=== PATIENT | male | born 1955 | race Caucasian/White ===

== ENCOUNTER 2018-07-13 20:52 | Inpatient (IN) | payer MEDICARE ==
[~2018-07-13] VITALS: Ht 172.7 cm; Wt 97.5 kg
[~2018-07-13 20:52] MED LIST: ACETAMINOPHEN325 M1 PO; COLACE100 MG PO; NOHOMEMEDICATIONS
[2018-07-13 21:11] VITALS: BP 173/109
[2018-07-13 21:40] LABS: ABSOLUTE BASOPHILS 0.1 thou/uL (0.0-0.2); ABSOLUTE EOSINOPHILS 0.1 thou/uL (0.0-0.7); ABSOLUTE MONOCYTES 1.2 thou/uL (0.0-1.2); EOSINOPHILS 0.5 %; MCH 30.7 pg (26.0-34.0); WBC 14.8 thou/uL (4.0-11.0)
[2018-07-13 21:41] LABS: ABSOLUTE NEUTROPHILS 11.5 thou/uL (1.6-8.1); BASOPHILS 0.6 %; HEMATOCRIT 50.3 % (42.0-52.0); LYMPHOCYTES 13.4 %; MCHC 33.7 g/dL (28.0-37.0); MCV 90.9 fL (80.0-100.0); MONOCYTES 7.9 %; MPV 8.4 fl. (7.2-11.1); NUCLEATED RBCS 0 /100WBC; PLATELET COUNT* 232 thou/uL (150-400); POLYS 77.6 %; RBC 5.53 mil/uL (4.50-6.00); RDW-CV 12.9 % (10.5-14.5)
[2018-07-13 21:52] LABS: CALCIUM 9.4 mg/dL (8.5-10.1); CREATININE 1.3 mg/dL (0.6-1.3); POTASSIUM 4.5 mmol/L (3.5-5.1)
[2018-07-13 22:02] LABS: TOTAL BILIRUBIN 0.4 mg/dL (<0.1-1.0); TOTAL PROTEIN 7.4 g/dL (6.4-8.2)
[2018-07-13 22:30] LABS: URINE BILIRUBIN NEGATIVE (Negative); URINE BLOOD TRACE (Negative); URINE CLARITY CLEAR; URINE COLOR YELLOW; URINE GLUCOSE-RANDOM NEGATIVE (Negative); URINE KETONES NEGATIVE (Negative); URINE LEUKOCYTES-REFLEX NEGATIVE (Negative); URINE NITRITE-REFLEX NEGATIVE (Negative); URINE PROTEIN NEGATIVE (Negative); URINE SPECIFIC GRAVITY >= 1.030 (1.005-1.030); URINE UROBILINOGEN 0.2 E.U./dl (0.2-1.0)
[2018-07-13 22:40] LABS: AMP/METHAMP Negative (Negative); BARBITURATES Negative (Negative); BENZODIAZEPINES Negative (Negative); COCAINE Negative (Negative); METHADONE Negative (Negative); OPIATES POSITIVE (Negative); PCP Negative (Negative); THC Negative (Negative)
[2018-07-14] VITALS: BP 165/109
[2018-07-14 00:05] VITALS: BP 144/98
[2018-07-14 04:00] VITALS: BP 138/81
[2018-07-14 08:20] VITALS: BP 128/68
[2018-07-14 09:16] LABS: CALCIUM 8.5 mg/dL (8.5-10.1); POTASSIUM 3.9 mmol/L (3.5-5.1)
[2018-07-14 16:39] VITALS: BP 145/83
[2018-07-14 20:45] VITALS: BP 133/84
[2018-07-15 04:03] LABS: ALBUMIN 3.2 g/dL (3.4-5.0); CALCIUM 8.1 mg/dL (8.5-10.1); TOTAL BILIRUBIN 0.6 mg/dL (<0.1-1.0)
[2018-07-15 04:05] LABS: HEMATOCRIT 43.7 % (42.0-52.0); MCH 31.3 pg (26.0-34.0); MCHC 33.8 g/dL (28.0-37.0); MCV 92.7 fL (80.0-100.0); MPV 8.7 fl. (7.2-11.1); RBC 4.71 mil/uL (4.50-6.00); RDW-CV 12.7 % (10.5-14.5); WBC 8.1 thou/uL (4.0-11.0)
[2018-07-15 04:17] LABS: HEMOGLOBIN 14.8 gm/dL (14.0-18.0)
[2018-07-15] MEDS ORDERED: PHENERGAN 25 MG25 M1 PO (09:15)
[2018-07-15 10:10] VITALS: BP 133/84
[2018-07-15 10:34] VITALS: BP 133/84
[2018-07-15 10:50] VITALS: BP 151/88
[2018-07-15 11:41] VITALS: BP 133/84
[2018-07-15 12:13] VITALS: BP 133/84
[2018-07-20 06:09] LABS: IgG 667 mg/dL (700-1600)
--- NOTE | 2018-07-27 12:30 | CON ---
[address] [address] CONSULTATION Name: RAYRAY MILLAN Room: [address] IN ..#: [id number] Admission: 07/13/18 Attend Phys: Raisa Claudoi MD Discharge: 07/15/18 Date of : 51 Report #: [id number] THIS REPORT FOR: //name// CC: [facility] physician/PCP Raisa Claudio HISTORY OF PRESENT ILLNESS: This is a pleasant 63-year-old male with past medical history of recurrent acute pancreatitis, who is presenting with abdominal pain. The patient reports the abdominal pain is located in the epigastric region. It is sharp, stabbing in nature. The patient reports the pain started on its own about yesterday and progressively worsened, prompting his ER visit. The patient reports that the pain is worse with food and is relieved by pain medications. Currently, the pain is 6/10 in intensity, but at presentation was 10/10 in intensity. The patient reports the pain is similar to his previous episodes of pancreatitis. The patient denies any nausea, vomiting, fevers, chills, weight loss. PAST MEDICAL HISTORY: Nonsignificant. The patient is not on any zyqj-yce-[id number] medications or prescription medications. PAST SURGICAL HISTORY: The patient had appendectomy, cholecystectomy, and back surgeries in the remote past. FAMILY HISTORY: Negative for pancreatic cancer. SOCIAL HISTORY: The patient reports a remote history of smoking, but quit about 10 years back. Denies any significant alcohol or recreational drug use. REVIEW OF SYSTEMS: Negative except what is mentioned in the HPI. PHYSICAL EXAMINATION: VITAL SIGNS: Temperature 36.9, pulse rate 79, respirations 18, blood pressure 145/83, pulse ox 95% on room air. GENERAL: The patient is alert, awake, oriented times 3. HEENT: Pupils are equal, round, reactive to light and accommodation. Mucous membranes are moist. NECK: There is no congestion. LUNGS: Clear to auscultation bilaterally. CARDIOVASCULAR: Rate and rhythm regular, S1, S2 present. ABDOMEN: Soft. There is no distention. Mild tenderness in the epigastric region, but otherwise no guarding, no rigidity. EXTREMITIES: Warm and well perfused. IMAGING: Peripancreatic edema and fat stranding along the head and uncinate process of pancreas, rule out pancreatitis, no urgent pseudocyst or abscess seen. Moderate atrophy of the pancreatic body and tail [place] [address] CONSULTATION Name: RAYRAY MILLAN Room: [address] IN [facility]#: [id number] Admission: 07/13/18 Attend Phys: Raisa Claudio MD Discharge: 07/15/18 Date of : 51 Report #: [id number] duct, slightly progressed from previous study, dilated common bile duct, unchanged, most likely related to previous cholecystectomy. LABORATORY DATA: Hemoglobin of 17.0, hematocrit 50.3, platelet count 232, WBC count 14.8. Sodium 141, potassium 3.9, chloride 106, bicarbonate 26, BUN 13, creatinine 1. Serum lipase 2768. ASSESSMENT AND PLAN: This is a very pleasant 63-year-old male with recurrent history of acute pancreatitis and chronic pancreatitis at baseline, is presenting with another acute episode of pancreatitis. Episode of pancreatitis appears to be mild without any local complications. I would recommend advancing the food as tolerated and placing the patient on conservative therapy. The patient will need an endoscopic ultrasound and possible endoscopic retrograde cholangiopancreatography as outpatient in 4-6 weeks' time and I will have this set up. I will check for IgG4 level along with a.m. labs. Rule out IgG4 related to enteritis. <ELECTRONICALLY SIGNED> By: Fritz Zelaya MD 07/27/18 1230 [id number] Zelaya MD /nt
== END 2018-07-15 11:55 | disposition home or self-care (01) | DRG 439 ==
LOC: M.ERS 20:52 → M.TBA-ER 23:13 → M.ORTHSURG 23:13
PROVIDERS: Internal Medicine; Internal Medicine Gastroenterology; Personal Emergency Response Attendant; ADMIT Internal Medicine
DX: K85.90 Acute pancreatitis without necrosis or infection, unspecified (principal); R65.10 Systemic inflammatory response syndrome (SIRS) of non-infectious origin without acute organ dysfunction; K86.1 Other chronic pancreatitis; N18.2 Chronic kidney disease, stage 2 (mild); Z90.49 Acquired absence of other specified parts of digestive tract; Z87.891 Personal history of nicotine dependence; Z79.899 Other long term (current) drug therapy

== ENCOUNTER 2020-07-28 17:26 | Inpatient (IN) | payer MEDICARE ==
[~2020-07-28] VITALS: Ht 172.7 cm; Wt 113.4 kg
[~2020-07-28 17:26] MED LIST changes: +PHENERGAN 25 MG25 M1 PO
[2020-07-28 17:35] VITALS: BP 145/87
[2020-07-28 18:05] LABS: ABSOLUTE EOSINOPHILS 0.1 thou/uL (0.0-0.7); ABSOLUTE LYMPHOCYTES 1.4 thou/uL (0.8-5.3); ABSOLUTE MONOCYTES 1.1 thou/uL (0.0-1.2); ABSOLUTE NEUTROPHILS 8.5 thou/uL (1.6-8.1); BASOPHILS 0.4 %; EOSINOPHILS 0.8 %; HEMATOCRIT 51.9 % (42.0-52.0); HEMOGLOBIN 17.4 gm/dL (14.0-18.0); LYMPHOCYTES 12.8 %; MCH 30.4 pg (26.0-34.0); MCHC 33.6 g/dL (28.0-37.0); MCV 90.6 fL (80.0-100.0); MONOCYTES 10.1 %; MPV 8.2 fl. (7.2-11.1); NUCLEATED RBCS 0 /100WBC; PLATELET COUNT* 226 thou/uL (150-400); POLYS 75.9 %; RBC 5.73 mil/uL (4.50-6.00); RDW-CV 13.1 % (10.5-14.5); WBC 11.1 thou/uL (4.0-11.0)
[2020-07-28 18:14] LABS: CALCIUM 8.7 mg/dL (8.5-10.1); CREATININE 1.2 mg/dL (0.6-1.3)
[2020-07-28 18:19] LABS: TOTAL BILIRUBIN 0.8 mg/dL (<0.1-1.0); TOTAL PROTEIN 7.6 g/dL (6.4-8.2)
[2020-07-28 19:24] LABS: URINE BILIRUBIN NEGATIVE (Negative); URINE BLOOD TRACE (Negative); URINE CLARITY CLEAR; URINE COLOR YELLOW; URINE GLUCOSE-RANDOM NEGATIVE (Negative); URINE KETONES 1+ (Negative); URINE LEUKOCYTES-REFLEX NEGATIVE (Negative); URINE NITRITE-REFLEX NEGATIVE (Negative); URINE PROTEIN NEGATIVE (Negative); URINE SPECIFIC GRAVITY 1.015 (1.005-1.030); URINE UROBILINOGEN 0.2 E.U./dl (0.2-1.0)
[2020-07-28 19:56] LABS: AMP/METHAMP Negative (Negative); BARBITURATES Negative (Negative); BENZODIAZEPINES Negative (Negative); COCAINE Negative (Negative); METHADONE Negative (Negative); OPIATES Negative (Negative); PCP Negative (Negative); THC Negative (Negative)
[2020-07-28 21:50] VITALS: BP 165/98
[2020-07-29 04:09] LABS: ABSOLUTE EOSINOPHILS 0.1 thou/uL (0.0-0.7); ABSOLUTE LYMPHOCYTES 2.2 thou/uL (0.8-5.3); ABSOLUTE MONOCYTES 1.1 thou/uL (0.0-1.2); ABSOLUTE NEUTROPHILS 5.3 thou/uL (1.6-8.1); BASOPHILS 0.5 %; EOSINOPHILS 1.5 %; HEMATOCRIT 49.4 % (42.0-52.0); HEMOGLOBIN 16.4 gm/dL (14.0-18.0); LYMPHOCYTES 25.7 %; MCH 30.4 pg (26.0-34.0); MCHC 33.3 g/dL (28.0-37.0); MCV 91.4 fL (80.0-100.0); MONOCYTES 12.1 %; MPV 8.1 fl. (7.2-11.1); NUCLEATED RBCS 0 /100WBC; PLATELET COUNT* 199 thou/uL (150-400); POLYS 60.2 %; RDW-CV 13.2 % (10.5-14.5); WBC 8.8 thou/uL (4.0-11.0)
[2020-07-29 04:32] LABS: CREATININE 1.2 mg/dL (0.6-1.3); POTASSIUM 4.3 mmol/L (3.5-5.1)
[2020-07-29 07:30] VITALS: BP 131/88
[2020-07-29 15:54] VITALS: BP 150/97
[2020-07-29 21:01] VITALS: BP 161/98
[2020-07-30 07:35] VITALS: BP 156/82
[2020-07-30 11:05] LABS: ABSOLUTE BASOPHILS 0.1 thou/uL (0.0-0.2); ABSOLUTE EOSINOPHILS 0.2 thou/uL (0.0-0.7); ABSOLUTE LYMPHOCYTES 1.4 thou/uL (0.8-5.3); ABSOLUTE MONOCYTES 1.2 thou/uL (0.0-1.2); ABSOLUTE NEUTROPHILS 5.2 thou/uL (1.6-8.1); BASOPHILS 0.7 %; EOSINOPHILS 2.1 %; HEMATOCRIT 43.3 % (42.0-52.0); HEMOGLOBIN 14.7 gm/dL (14.0-18.0); MCH 30.7 pg (26.0-34.0); MCHC 33.9 g/dL (28.0-37.0); MCV 90.6 fL (80.0-100.0); MONOCYTES 15.3 %; NUCLEATED RBCS 0 /100WBC; PLATELET COUNT* 176 thou/uL (150-400); POLYS 64.9 %; RBC 4.77 mil/uL (4.50-6.00); RDW-CV 12.8 % (10.5-14.5)
[2020-07-30 11:13] LABS: ALBUMIN 3.3 g/dL (3.4-5.0); CALCIUM 7.8 mg/dL (8.5-10.1); CREATININE 1.1 mg/dL (0.6-1.3); POTASSIUM 3.9 mmol/L (3.5-5.1); TOTAL BILIRUBIN 0.7 mg/dL (<0.1-1.0); TOTAL PROTEIN 6.5 g/dL (6.4-8.2)
--- NOTE | 2020-07-30 12:38 | CON ---
[address] [address] CONSULTATION Name: RAYRAY MILLAN Room: [address] IN .R.#: [id number] Admission: 07/28/20 Attend Phys: Eric Ribeiro MD Discharge: Date of : 51 Report #: [id number] THIS REPORT FOR: //name// cc: PHIL - No family physician/PCP PHIL - No family physician/PCP ~ DATE OF SERVICE: 07/29/2020 INDICATION FOR CONSULT: Epigastric pain and elevated lipase. HISTORY OF PRESENT ILLNESS: This is a 65-year-old male with history of pancreatitis in the past, who was last hospitalized for the same back in 2018. The patient reports that he ate a cheese sandwich Thursday morning and shortly after he felt that he is having epigastric pain. He reports that for the rest of the day, he did not eat much and try to drink fluids. The patient presented to hospital and found to have elevated lipase of 2800. There is also some peripancreatic fat stranding without any peripancreatic fluid collection or pseudocyst. The patient is currently sitting on a chair, reports that he feels comfortable. He denies nausea or vomiting. His last bowel movement was Thursday morning and reports that he is passing a bit of gas. He already has been started on clear liquids and is receiving IV fluids at rate of 200 mL an hour. After his last pancreatitis. He was supposed to get endoscopic ultrasound, which he reports that he forgot to get it. He is wondering if he can get that before the year end. PAST MEDICAL HISTORY: Significant for pancreatitis, tobaccoism, gallbladder disease, status post cholecystectomy, appendectomy, inguinal hernia, marked dilation of the main pancreatic duct and side branches, but appeared to be stable. The patient also has had back surgery in the past. ALLERGIES: No known drug allergy. MEDICATIONS: Please refer to MAR. SOCIAL HISTORY: The patient denies tobacco or alcohol use. FAMILY HISTORY: Noncontributory. PHYSICAL EXAMINATION: VITAL SIGNS: Reveals blood pressure of 165/98, respirations 16, pulse 96, temperature 97. [place] [address] CONSULTATION Name: YANARAYRAY Italo Room: [address] IN [facility]#: [id number] Admission: 07/28/20 Attend Phys: Eric Ribeiro MD Discharge: Date of : 51 Report #: [id number] LUNGS: Clear. CARDIOVASCULAR: Regular. ABDOMEN: Large, mildly distended. Bowel sounds are positive, but hypoactive. NEUROLOGIC: The patient is alert and oriented x 3. There is no focal neurologic deficit. LABORATORY DATA: Reveal sodium of 140, potassium 4.3, BUN is 24, creatinine 1.2. Amylase is 315, lipase is 2808. Bilirubin is normal. AST and ALT and alkaline phosphatase also fall within normal range. WBC is 8.8 with hemoglobin of 16.4 and platelet of 199. IMAGING: As discussed above. ASSESSMENT AND PLAN: The patient with recurrent pancreatitis and pancreatic duct dilatation with extension of the dilation to side branches. We will put him and schedule for endoscopic ultrasound after his discharge this week. He is currently tolerating liquid diet and receiving IV fluids. We will check lipase in the morning. The patient is agreeable with plan. <ELECTRONICALLY SIGNED> By: Zachariah Berumen MD 07/30/20 1238 [id number] Berumen MD /nt
[2020-07-30 15:43] VITALS: BP 149/84
[2020-07-31 05:28] LABS: ABSOLUTE EOSINOPHILS 0.3 thou/uL (0.0-0.7); ABSOLUTE LYMPHOCYTES 1.5 thou/uL (0.8-5.3); ABSOLUTE MONOCYTES 1.1 thou/uL (0.0-1.2); ABSOLUTE NEUTROPHILS 5.3 thou/uL (1.6-8.1); BASOPHILS 0.5 %; EOSINOPHILS 3.3 %; HEMATOCRIT 42.6 % (42.0-52.0); HEMOGLOBIN 14.3 gm/dL (14.0-18.0); LYMPHOCYTES 18.1 %; MCH 30.6 pg (26.0-34.0); MCHC 33.6 g/dL (28.0-37.0); MCV 91.1 fL (80.0-100.0); MONOCYTES 13.4 %; MPV 8.9 fl. (7.2-11.1); NUCLEATED RBCS 0 /100WBC; PLATELET COUNT* 174 thou/uL (150-400); POLYS 64.7 %; RBC 4.67 mil/uL (4.50-6.00); RDW-CV 12.9 % (10.5-14.5); WBC 8.2 thou/uL (4.0-11.0)
[2020-07-31 05:46] LABS: ALBUMIN 3.1 g/dL (3.4-5.0); CALCIUM 8.4 mg/dL (8.5-10.1); CREATININE 1.1 mg/dL (0.6-1.3); TOTAL BILIRUBIN 0.7 mg/dL (<0.1-1.0); TOTAL PROTEIN 6.2 g/dL (6.4-8.2)
[2020-07-31 07:20] VITALS: BP 173/103
--- NOTE | 2020-07-31 08:41 | EKG ---
[place] [address] ELECTROCARDIOGRAM REPORT Name: RAYRAY MILLAN Room: [address] ADM IN [facility]#: [id number] Admission: 07/28/20 Attend Phys: Eric Ribeiro, Discharge: Date of : 51 Date of Service: 07/28/20 1753 Report #: [id number] THIS REPORT FOR: //name// [facility] ED Test Date: 2020-07-28 Test Time: 17:53:40 Pat Name: RAYRAY MILLAN Department: Room: [facility] Gender: M Change Coordinator: BRIGHT : 1955 Requested By: Kody Wen Order Number: [id number] MD: Hugo Alvarez Measurements Intervals [place] Rate: 121 P: 22 ID: [id number] QRS: 245 QRSD: 79 T: 49 QT: 297 QTc: 422 Interpretive Statements Sinus tachycardia Probable left atrial enlargement LAD, consider left anterior fascicular block Consider right ventricular hypertrophy Baseline wander in lead(s) II,III,aVF Compared to ECG 10/12/2013 12:42:03 Myocardial infarct finding no longer present Electronically Signed On 07-31-2020 8:41:30 JEWELRY SALESPERSON by Hugo Alvarez [email or web address] <ELECTRONICALLY SIGNED> By: Kalee Alvarez MD, [facility] 07/31/20 [phone] Kalee Alvarez MD, [facility] /EPI
[2020-07-31 09:32] VITALS: BP 173/103
[2020-07-31] MEDS ORDERED: PERCOCET 5-3251 EACH PO (10:07)
[2020-07-31 10:12] VITALS: BP 173/103
[2020-07-31 10:36] VITALS: BP 173/103
== END 2020-07-31 10:37 | disposition home or self-care (01) | DRG 438 ==
LOC: M.ERS 17:26 → M.3W 19:39 → M.TBA-ER 19:39 → M.3W 22:02
PROVIDERS: Physician Assistant; ADMIT Internal Medicine; ATTEND Internal Medicine
DX: K85.80 Other acute pancreatitis without necrosis or infection (principal); R65.11 Systemic inflammatory response syndrome (SIRS) of non-infectious origin with acute organ dysfunction; K83.8 Other specified diseases of biliary tract; Z20.828 Contact with and (suspected) exposure to other viral communicable diseases; Z90.49 Acquired absence of other specified parts of digestive tract; Z87.891 Personal history of nicotine dependence